=== PATIENT | female | born 1965 | race African-American/Black ===

== ENCOUNTER 2017-10-19 13:47 | Emergency (ER) | payer OTHER ==
[~2017-10-19] VITALS: Ht 154.9 cm; Wt 108.9 kg
[~2017-10-19 13:47] MED LIST: CANE MISCELL; CIPROFLOXACIN500 M1 PO; EC-NAPROSYN375 MG PO; FLEXERIL PO; HYDROCODONE-AP1 EAC6 PO; IBUPROFEN 600600 M1 PO; NOHOMEMEDICATIONS; NORCO 5-325 TA1 EACH PO; PERCOCET 5-3251 EACH PO; PHENERGAN 25 MG25 M1 PO; PYRIDIUM200 MG PO
[2017-10-19] MEDS ORDERED: NEURONTIN 400400 M1 PO (13:57)
[2017-10-19] MEDS ORDERED: ETODOLAC 400 M400 M1 PO (13:57)
[2017-10-19] MEDS ORDERED: IBUPROFEN 600600 M1 PO (14:51)
[2017-10-19] MEDS ORDERED: FLEXERIL PO (14:51)
[2017-10-19 15:07] VITALS: BP 156/109
== END 2017-10-19 15:10 | disposition home or self-care (01) ==
LOC: ER 13:47
DX: S83.92XA Sprain of unspecified site of left knee, initial encounter (principal); S39.012A Strain of muscle, fascia and tendon of lower back, initial encounter; M19.90 Unspecified osteoarthritis, unspecified site; F17.210 Nicotine dependence, cigarettes, uncomplicated; Z90.89 Acquired absence of other organs; W18.39XA Other fall on same level, initial encounter; Y92.89 Other specified places as the place of occurrence of the external cause; Y93.89 Activity, other specified; Y99.8 Other external cause status

== ENCOUNTER → 2018-07-01 | Outpatient (CLI) | payer BC, OTHER ==
[~2018-07-01] MED LIST changes: +ETODOLAC 400 M400 M1 PO; +NEURONTIN 400400 M1 PO
== END ==
LOC: BC 11:05
DX: Z12.31 Encounter for screening mammogram for malignant neoplasm of breast (principal)